=== PATIENT | female | born 1925 | race Caucasian/White ===

== ENCOUNTER → 2016-11-06 | Outpatient (CLI) | payer MEDICARE ==
[2016-04-11 13:37] VITALS: BP 142/63
[~2016-11-06] MED LIST: ASPI-482 PO; CLOB15CR2 TP; CLOP75TA PO; ENAL20TA PO; GABA-585 PO; GLYB1.252 PO; GLYB2.5T2 PO; HYDR-2758 PO; HYDR25TA9 PO; METO25TA9 PO; PANT40TA5 PO; SIMV20TA3 PO; [UNRECOGNIZED DRUG - CODE] PO
--- NOTE | 2016-11-06 15:12 | RAD ---
Bilateral lower extremity arterial ultrasound, 11/06/2016: History: Blue toes Duplex evaluation of the major arteries in both lower extremities was performed including grayscale, color-flow and spectral Doppler analysis. There are mild scattered atherosclerotic plaques. On the right, the common femoral artery demonstrates a biphasic Doppler waveform. The left superficial femoral and popliteal Doppler waveforms are biphasic. No significant focal velocity elevation is seen of those vessels to suggest high-grade stenosis. Patent posterior tibial, anterior tibial and dorsalis pedis arteries are present on the right demonstrated good biphasic Doppler waveforms. The right peroneal artery was not visualized. On the left, the common femoral Doppler waveform is biphasic. No blood flow is evident in the proximal and mid superficial femoral artery in the left thigh compatible with occlusion. There is reconstitution of the distal left superficial femoral artery which demonstrates a biphasic Doppler waveform. The left popliteal artery also demonstrates biphasic blood flow. In the left lower leg the proximal posterior tibial Doppler waveform is biphasic. The distal left posterior tibial, peroneal and anterior tibial arteries all demonstrate monophasic Doppler waveforms. The left dorsalis pedis Doppler waveform is also monophasic. IMPRESSION: 1. Mild scattered atherosclerotic plaquing with no evidence of significant femoral-popliteal stenosis on the right. 2. Nonvisualization of the right peroneal artery suggesting occlusion of that vessel. 3. 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 4. Mild associated degradation of the distal Doppler waveforms in the left lower leg and foot.
--- NOTE | 2016-11-06 15:28 | RAD ---
Chest radiograph 2 views Clinical indication: Hypertension. Comparison: Chest radiograph 11/27/2015. Findings: Cardiac and mediastinal silhouettes are within normal limits. Unchanged minimal linear scarring of the right midlung. There are patchy opacities in the left lung base. No pleural effusion or pneumothorax. Impression: Patchy opacities in the left lung base which may represent atelectasis, aspiration or infection.
== END | disposition home or self-care (01) ==
LOC: US 14:55
PROVIDERS: ATTEND Family Medicine
DX: I10 Essential (primary) hypertension (principal); R23.0 Cyanosis; I70.203 Unspecified atherosclerosis of native arteries of extremities, bilateral legs
CPT/HCPCS: 71020; 93925